=== PATIENT | male | born 1935 | race Caucasian/White ===

== ENCOUNTER 2016-12-31 01:04 | Inpatient (IN) | payer MEDICARE, BC ==
[~2016-12-31] VITALS: Ht 185.4 cm; Wt 93.1 kg
[~2016-12-31 01:04] MED LIST: ALLOPURINOL100 MG PO; ARICEPT10 MG PO; ASPIRIN E.C. 8181 MG PO; BENAZEPRIL; CELEXA 20MG20 MG/TAB PO; FISH OIL SUPER1 SGL PO; FLOMAX 0.40.4 MG/CAP PO; GLUCOSAMINE500 M2 PO; HCTZ; LOTENSIN20 MG PO; NAMENDA XR 28MG PO; NORITATE1% TP; PREVACID 30MG30 M1 PO; PROSCAR 5MG5 MG PO; SIMVISTATIN; VITAMIN B COMPL1 SGL PO; VITAMIN D 1001000 IU PO; ZOCOR 80MG80 MG PO; ZYLOPRIM 100MG100 MG PO
[2016-12-31] MEDS ORDERED: FLORINEF ACETA0.1 MG PO (01:16)
[2016-12-31 01:38] LABS: BASO # 0.1 (0.0-0.2); BASO % 0.3 % (0.0-2.0); EOS # 0.1 (0.0-0.7); EOS % 0.3 % (0-4.0); GRAN # 15.9 (1.4-6.5); GRAN % 86.3 % (42.2-75.2); HEMATOCRIT 38.3 % (42.0-52.0); HEMOGLOBIN 13.1 g/dl (13.5-18.0); LYMPH # 1.4 (1.2-3.4); LYMPH % 7.4 % (20.0-51.0); MEAN CELL VOLUME 87 fl (80.0-100.0); MEAN CORPUSCULAR HEMOGLOBIN 30 pg (27.0-31.0); MEAN CORPUSCULAR HGB CONC 34 g/dl (33.0-37.0); MEAN PLATELET VOLUME 11.1 fl (7.4-10.4); MONO % 5.3 % (1.7-9.3); PLATELET COUNT 237 K/mm3 (130-400); RED BLOOD COUNT 4.41 M/mm3 (4.20-5.60); WHITE BLOOD COUNT 18.4 K/mm3 (4.8-10.8)
[2016-12-31 01:43] LABS: INR 1.1 (0.8-3.0); PROTHROMBIN TIME 11.7 SECONDS (9.7-12.8)
[2016-12-31 01:46] LABS: PARTIAL THROMBOPLASTIN TIME 28.2 SECONDS (26.0-37.0)
[2016-12-31 01:49] LABS: ADJUSTED CALCIUM 9.4 mg/dL (8.4-10.2); ALANINE AMINOTRANSFERASE 21 U/L (21-72); ALBUMIN 4.1 gm/dL (3.5-5.0); ALKALINE PHOSPHATASE 131 U/L (50-136); ANION GAP 15 mmol/L (7-16); BILIRUBIN,TOTAL 0.6 mg/dL (0.0-1.0); BLOOD UREA NITROGEN 25 mg/dL (9-20); CALCIUM 9.5 mg/dL (8.4-10.2); CARBON DIOXIDE 24 mmol/L (22-30); CHLORIDE 99 mmol/L (98-107); GLUCOSE 148 mg/dL (74-106); LIPASE 62 U/L (23-300); POTASSIUM 3.1 mmol/L (3.4-5.0); SODIUM 139 mmol/L (137-145)
[2016-12-31 01:50] LABS: C-REACTIVE PROTEIN < 0.5 mg/dL (0.0-0.9)
[2016-12-31 01:58] LABS: B-TYPE NATRIURETIC PEPTIDE 3640 pg/mL (0-450); TROPONIN-I 0.016 ng/mL (0.000-0.034)
[2016-12-31 02:33] LABS: PH 8 (5-8); SQUAMOUS EPITHELIAL 0-2 /hpf; URINE APPEARANCE Clear; URINE BACTERIA None Seen /hpf; URINE BILIRUBIN Negative (NEGATIVE); URINE BLOOD Negative (NEGATIVE); URINE COLOR Straw; URINE GLUCOSE Negative (NEGATIVE); URINE KETONE Negative (NEGATIVE); URINE RBC 0-2 /hpf; URINE UROBILINOGEN Negative (NEGATIVE); URINE WBC 0-2 /hpf
[2016-12-31 06:38] VITALS: BP 165/68; PULSE 59
[2016-12-31 06:58] LABS: CALCIUM 8.7 mg/dL (8.4-10.2); CREATININE, serum 1.44 mg/dL (0.66-1.25); POTASSIUM 3.1 mmol/L (3.4-5.0)
[2016-12-31 08:30] VITALS: BP 154/59; PULSE 61; TEMP 98
[2016-12-31 11:29] LABS: BASO % 0.2 % (0.0-2.0); EOS % 0.2 % (0-4.0); GRAN # 12.7 (1.4-6.5); GRAN % 80.6 % (42.2-75.2); LYMPH # 1.9 (1.2-3.4); LYMPH % 11.8 % (20.0-51.0); MEAN CELL VOLUME 89 fl (80.0-100.0); MEAN CORPUSCULAR HGB CONC 33 g/dl (33.0-37.0); MEAN PLATELET VOLUME 11.9 fl (7.4-10.4); MONO # 1.1 (0.1-0.6); MONO % 6.8 % (1.7-9.3); PLATELET COUNT 213 K/mm3 (130-400); RED BLOOD COUNT 3.83 M/mm3 (4.20-5.60); REDCELL DISTRIBUTION WIDTH-CV 16.5 % (11.5-14.5); WHITE BLOOD COUNT 15.8 K/mm3 (4.8-10.8)
[2016-12-31 11:30] LABS: HEMATOCRIT 34.2 % (42.0-52.0); HEMOGLOBIN 11.4 g/dl (13.5-18.0); MEAN CORPUSCULAR HEMOGLOBIN 30 pg (27.0-31.0)
[2016-12-31 12:10] VITALS: BP 143/71; PULSE 64; TEMP 98.9
[2016-12-31 15:35] VITALS: BP 128/50; PULSE 73; TEMP 97.7
[2016-12-31 20:03] VITALS: BP 148/73; PULSE 75; TEMP 98.6
[2016-12-31 23:15] VITALS: BP 157/63; PULSE 57; TEMP 99.3
[2017-01-01 02:38] VITALS: BP 168/75; PULSE 59; TEMP 98.7
[2017-01-01 06:47] LABS: BASO # 0.1 (0.0-0.2); BASO % 0.4 % (0.0-2.0); EOS # 0.3 (0.0-0.7); EOS % 2.7 % (0-4.0); GRAN # 8.4 (1.4-6.5); GRAN % 67.6 % (42.2-75.2); HEMATOCRIT 31.6 % (42.0-52.0); HEMOGLOBIN 10.5 g/dl (13.5-18.0); LYMPH # 2.7 (1.2-3.4); LYMPH % 21.3 % (20.0-51.0); MEAN CELL VOLUME 90 fl (80.0-100.0); MEAN CORPUSCULAR HEMOGLOBIN 30 pg (27.0-31.0); MEAN CORPUSCULAR HGB CONC 33 g/dl (33.0-37.0); MEAN PLATELET VOLUME 11.2 fl (7.4-10.4); MONO # 0.9 (0.1-0.6); MONO % 7.5 % (1.7-9.3); PLATELET COUNT 176 K/mm3 (130-400); RED BLOOD COUNT 3.53 M/mm3 (4.20-5.60); REDCELL DISTRIBUTION WIDTH-CV 16.9 % (11.5-14.5); WHITE BLOOD COUNT 12.4 K/mm3 (4.8-10.8)
[2017-01-01 07:03] LABS: CALCIUM 8.2 mg/dL (8.4-10.2); CREATININE, serum 1.35 mg/dL (0.66-1.25); POTASSIUM 3.5 mmol/L (3.4-5.0)
[2017-01-01 07:26] VITALS: BP 154/74; PULSE 63; TEMP 98.5
[2017-01-01] MEDS ORDERED: LIORESAL 1010 MG/TAB PO (08:31)
[2017-01-01] MEDS ORDERED: ZANTAC 150MG T150 MG PO (10:43)
== END 2017-01-01 13:47 | disposition home or self-care (01) | DRG 392 ==
LOC: COL.ER 01:04 → MEDICAL 03:53
PROVIDERS: Emergency Medicine; Family Medicine; Nurse Practitioner Family
DX: K29.00 Acute gastritis without bleeding (principal); E87.2 Acidosis; Z66 Do not resuscitate; K21.9 Gastro-esophageal reflux disease without esophagitis; I10 Essential (primary) hypertension; J45.909 Unspecified asthma, uncomplicated; Z87.891 Personal history of nicotine dependence; R06.6 Hiccough; E87.6 Hypokalemia; F03.90 Unspecified dementia, unspecified severity, without behavioral disturbance, psychotic disturbance, mood disturbance, and anxiety
CPT/HCPCS: 99233-AI; 99239; C9113; J1650; J1956; J2405; J2543; J3480; J7030; J7050; Q9967

== ENCOUNTER 2017-02-08 11:09 | Inpatient (IN) | payer MEDICARE, BC ==
[~2017-02-08] VITALS: Ht 195.6 cm; Wt 90.4 kg
[~2017-02-08 11:09] MED LIST changes: +FLORINEF ACETA0.1 MG PO; +LIORESAL 1010 MG/TAB PO; +ZANTAC 150MG T150 MG PO
[2017-02-08 11:39] LABS: BASO % 0.2 % (0.0-2.0); EOS # 0.1 (0.0-0.7); EOS % 0.5 % (0-4.0); GRAN # 11.3 (1.4-6.5); GRAN % 77.7 % (42.2-75.2); LYMPH # 1.5 (1.2-3.4); LYMPH % 10.2 % (20.0-51.0); MEAN CELL VOLUME 88 fl (80.0-100.0); MEAN CORPUSCULAR HGB CONC 34 g/dl (33.0-37.0); MEAN PLATELET VOLUME 11.1 fl (7.4-10.4); MONO # 1.6 (0.1-0.6); MONO % 10.9 % (1.7-9.3); PLATELET COUNT 206 K/mm3 (130-400); RED BLOOD COUNT 3.65 M/mm3 (4.20-5.60); REDCELL DISTRIBUTION WIDTH-CV 15.6 % (11.5-14.5); WHITE BLOOD COUNT 14.6 K/mm3 (4.8-10.8)
[2017-02-08 11:51] LABS: ADJUSTED CALCIUM 8.7 mg/dL (8.4-10.2); ALBUMIN 3.4 gm/dL (3.5-5.0); BILIRUBIN,TOTAL 0.9 mg/dL (0.0-1.0); CALCIUM 8.2 mg/dL (8.4-10.2); CREATININE, serum 1.4 mg/dL (0.66-1.25); HEMOGLOBIN 10.9 g/dl (13.5-18.0); MEAN CORPUSCULAR HEMOGLOBIN 30 pg (27.0-31.0); TOTAL PROTEIN 6.7 gm/dL (6.4-8.2)
[2017-02-08 11:53] LABS: POTASSIUM 2.6 mmol/L (3.4-5.0)
[2017-02-08] MEDS ORDERED: CIPRO 250MG TA250 MG PO (12:06)
[2017-02-08 12:07] LABS: ARTERIAL BLD GAS O2 SATURATION 94.9 % (92-100); ARTERIAL BLD GAS TCO2 CT 27.2; ARTERIAL BLOOD GAS BASE EXCESS 4.1 (-2-2); ARTERIAL BLOOD GAS HCO3 26.3 meq/L (22-26); ARTERIAL BLOOD GAS PO2 72.1 mmHg (80-100); ARTERIAL BLOOD GAS pH 7.55 (7.35-7.45); OXYHEMOGLOBIN 94.4 %
[2017-02-08 12:08] LABS: ATS? YES
[2017-02-08 14:29] VITALS: BP 141/63; PULSE 78; TEMP 99.4
[2017-02-08 15:09] LABS: MAGNESIUM 1.9 mg/dL (1.6-2.3)
[2017-02-08] MEDS ORDERED: CARAFATE 1GM1 G PO (15:51)
[2017-02-08 15:57] VITALS: BP 136/54; PULSE 53; TEMP 99.5
[2017-02-08 20:40] VITALS: BP 140/50; PULSE 55; TEMP 98.8
[2017-02-09] VITALS (7 sets, daily range): BP systolic 127–144; BP diastolic 50–73; PULSE 50–61; TEMP 98–99.8
[2017-02-09 08:17] LABS: BASO % 0.4 % (0.0-2.0); EOS # 0.2 (0.0-0.7); EOS % 1.6 % (0-4.0); GRAN # 7.5 (1.4-6.5); MEAN CELL VOLUME 89 fl (80.0-100.0); MEAN CORPUSCULAR HGB CONC 34 g/dl (33.0-37.0); MEAN PLATELET VOLUME 11.2 fl (7.4-10.4); MONO # 1.3 (0.1-0.6); MONO % 11.5 % (1.7-9.3); PLATELET COUNT 198 K/mm3 (130-400); REDCELL DISTRIBUTION WIDTH-CV 15.4 % (11.5-14.5); WHITE BLOOD COUNT 11.1 K/mm3 (4.8-10.8)
[2017-02-09 08:21] LABS: HEMATOCRIT 29.2 % (42.0-52.0); HEMOGLOBIN 9.9 g/dl (13.5-18.0); MEAN CORPUSCULAR HEMOGLOBIN 30 pg (27.0-31.0)
[2017-02-09 08:30] LABS: CALCIUM 7.8 mg/dL (8.4-10.2); CREATININE, serum 1.16 mg/dL (0.66-1.25)
[2017-02-09 08:38] LABS: POTASSIUM 2.8 mmol/L (3.4-5.0)
[2017-02-10 01:28] LABS: PH 6 (5-8); SQUAMOUS EPITHELIAL 0-2 /hpf; URINE APPEARANCE Clear; URINE BACTERIA Occasional /hpf; URINE BILIRUBIN Negative (NEGATIVE); URINE BLOOD Negative (NEGATIVE); URINE COLOR Yellow; URINE GLUCOSE Negative (NEGATIVE); URINE KETONE Negative (NEGATIVE)
[2017-02-10 01:29] LABS: URINE WBC >50 /hpf
[2017-02-10 04:22] VITALS: BP 151/71; PULSE 53; TEMP 97.6
[2017-02-10 07:48] LABS: MEAN CELL VOLUME 89 fl (80.0-100.0); MEAN CORPUSCULAR HGB CONC 33 g/dl (33.0-37.0); MEAN PLATELET VOLUME 11.3 fl (7.4-10.4); PLATELET COUNT 203 K/mm3 (130-400); RED BLOOD COUNT 3.42 M/mm3 (4.20-5.60); REDCELL DISTRIBUTION WIDTH-CV 15.4 % (11.5-14.5); WHITE BLOOD COUNT 11.2 K/mm3 (4.8-10.8)
[2017-02-10 07:52] VITALS: BP 169/76; PULSE 54; TEMP 98
[2017-02-10 08:07] LABS: HEMATOCRIT 30.5 % (42.0-52.0); MEAN CORPUSCULAR HEMOGLOBIN 29 pg (27.0-31.0)
[2017-02-10 08:22] LABS: CALCIUM 7.9 mg/dL (8.4-10.2); CREATININE, serum 1.25 mg/dL (0.66-1.25); POTASSIUM 3.3 mmol/L (3.4-5.0)
[2017-02-10] MEDS ORDERED: AMOXICILLIN 50500 MG PO (09:19)
[2017-02-10] MEDS ORDERED: K-TAB20 PO (09:20)
[2017-02-10] MEDS ORDERED: PRINIVIL5 MG PO (09:21)
== END 2017-02-10 11:14 | disposition home or self-care (01) | DRG 641 ==
LOC: COL.ER 11:09 → MEDICAL 12:41
PROVIDERS: Family Medicine; Internal Medicine; Physician Assistant
DX: E87.6 Hypokalemia (principal); N39.0 Urinary tract infection, site not specified; K21.9 Gastro-esophageal reflux disease without esophagitis; Z66 Do not resuscitate; F03.90 Unspecified dementia, unspecified severity, without behavioral disturbance, psychotic disturbance, mood disturbance, and anxiety; I12.9 Hypertensive chronic kidney disease with stage 1 through stage 4 chronic kidney disease, or unspecified chronic kidney disease; N18.3 Chronic kidney disease, stage 3 (moderate); D64.9 Anemia, unspecified; K22.70 Barrett's esophagus without dysplasia; F32.9 Major depressive disorder, single episode, unspecified; N40.0 Benign prostatic hyperplasia without lower urinary tract symptoms; Z87.891 Personal history of nicotine dependence
CPT/HCPCS: 99222-AI; 99233-AI; 99239; J0696; J1650; J7030

== ENCOUNTER → 2017-02-26 | Outpatient (CLI) | payer MEDICARE, BC ==
[~2017-02-26] MED LIST changes: +AMOXICILLIN 50500 MG PO; +CARAFATE 1GM1 G PO; +CIPRO 250MG TA250 MG PO; +K-TAB20 PO; +PRINIVIL5 MG PO
== END ==
LOC: COL.RAD 13:39
DX: G31.9 Degenerative disease of nervous system, unspecified (principal)

== ENCOUNTER 2017-03-19 11:25 | Observation (INO) | payer MEDICARE, BC ==
[~2017-03-19] VITALS: Ht 185.4 cm; Wt 89.5 kg
[2017-03-19] VITALS (10 sets, daily range): BP systolic 95–160; BP diastolic 51–86; PULSE 59–94; TEMP 97.4–98.7
[2017-03-19] MEDS ORDERED: K-DUR20 MEQ PO (13:05)
[2017-03-19] MEDS ORDERED: VITAMIN B11000 MCG/M IM (13:06)
[2017-03-20 02:04] VITALS: BP 131/68; PULSE 64; TEMP 98.9
[2017-03-20 06:11] LABS: MEAN CELL VOLUME 89 fl (80.0-100.0); MEAN CORPUSCULAR HGB CONC 33 g/dl (33.0-37.0); MEAN PLATELET VOLUME 10.7 fl (7.4-10.4); PLATELET COUNT 225 K/mm3 (130-400); RED BLOOD COUNT 3.74 M/mm3 (4.20-5.60); REDCELL DISTRIBUTION WIDTH-CV 16.1 % (11.5-14.5); WHITE BLOOD COUNT 16.7 K/mm3 (4.8-10.8)
[2017-03-20 06:18] LABS: HEMATOCRIT 33.3 % (42.0-52.0); MEAN CORPUSCULAR HEMOGLOBIN 29 pg (27.0-31.0)
[2017-03-20 06:21] VITALS: BP 150/70; PULSE 68; TEMP 98.9
[2017-03-20 11:06] VITALS: BP 114/55; PULSE 84; TEMP 98.4
[2017-03-20 13:50] VITALS: BP 86/45; PULSE 83; TEMP 98.2
[2017-03-20 16:57] VITALS: BP 116/52; PULSE 72; TEMP 98.7
[2017-03-20 21:21] VITALS: BP 123/69; PULSE 71; TEMP 99.3
[2017-03-21 00:53] VITALS: BP 128/67; PULSE 76; TEMP 99.7
[2017-03-21 06:05] VITALS: BP 140/68; PULSE 56; TEMP 97.9
[2017-03-21 09:41] VITALS: BP 118/99; PULSE 98; TEMP 97.6
== END 2017-03-21 13:53 | disposition home or self-care (01) ==
LOC: SDCO 11:25 → SURG 16:45 → SDCO 03-20 09:59 → SURG 03-20 10:00
PROVIDERS: Urology
DX: N40.1 Benign prostatic hyperplasia with lower urinary tract symptoms (principal); I95.9 Hypotension, unspecified; N13.8 Other obstructive and reflux uropathy; N32.89 Other specified disorders of bladder; F03.90 Unspecified dementia, unspecified severity, without behavioral disturbance, psychotic disturbance, mood disturbance, and anxiety; I10 Essential (primary) hypertension; M19.90 Unspecified osteoarthritis, unspecified site; Z87.891 Personal history of nicotine dependence; Z83.3 Family history of diabetes mellitus; Z82.49 Family history of ischemic heart disease and other diseases of the circulatory system
CPT/HCPCS: OP; G0378; J0690; J2250; J2704; J7120

== ENCOUNTER 2018-03-12 14:19 | Outpatient (RCR) | payer MEDICARE, BC ==
[~2018-03-12 14:19] MED LIST changes: +K-DUR20 MEQ PO; +VITAMIN B11000 MCG/M IM
[2018-03-16] MEDS ORDERED: LIORESAL 1010 MG/TAB PO (10:45)
[2018-03-16] MEDS ORDERED: PROAMATINE 5MG T5 MG PO (10:48)
== END 2018-03-18 13:46 | disposition home or self-care (01) ==
LOC: WSPT 14:19
DX: R53.81 Other malaise (principal); Z91.81 History of falling
CPT/HCPCS: G8978-GP; G8979-GP